=== PATIENT | male | born 1975 | race Caucasian/White ===

== ENCOUNTER 2016-10-19 16:43 | Emergency (ER) | payer OTHER ==
[~2016-10-19] VITALS: Ht 177.8 cm; Wt 86.2 kg
[2016-10-19 16:45] VITALS: BP_SYST 159
--- NOTE | 2016-10-19 17:00 | NUR ---
Placed in room 5. To gown for exam. Side rails up. Report given to ed SWANSON
--- NOTE | 2016-10-19 17:25 | NUR ---
Pt presents to ER with right flank pain. Reports having pain since yesterday. Went to urgent care. prescribed toradol but has no relief. Pt describes pain as shooting- 01/27.
--- NOTE | 2016-10-19 17:28 | NUR ---
ER at bedside examining patient.
[2016-10-19] MEDS ORDERED: PROMETHAZINE HCL 25 MG/ML AMP IM ONE (17:45)
[2016-10-19] MEDS ORDERED: HYDROmorphone 1 MG INJ. 1 MG/ML AMPUL IM ONE (17:45)
--- NOTE | 2016-10-19 17:55 | NUR ---
Admin dilaudid and phenergan as ordered. Pt scott well
--- NOTE | 2016-10-19 19:27 | NUR ---
Patient given written and verbal discharge instructions and verbalizes understanding. ER MD discussed with patient the results and treatment provided. Patient in stable condition. ID arm band removed. Rx of [place], naproxen given. Patient educated on pain management and to follow up with PMD. Pain Scale 1/10 and tolerable. Opportunity for questions provided and answered.
[2016-10-19 19:34] VITALS: BP_SYST 116
== END 2016-10-19 19:34 | disposition home or self-care (01) ==
LOC: SED 16:43
DX: M54.41 Lumbago with sciatica, right side (principal); R03.0 Elevated blood-pressure reading, without diagnosis of hypertension; Z88.8 Allergy status to other drugs, medicaments and biological substances
CPT/HCPCS: 96372; 99284; J1170; J2550

== ENCOUNTER 2024-01-09 07:09 | Day surgery (SDC) | payer OTHER ==
[~2024-01-09] VITALS: Ht 175.3 cm; Wt 93.0 kg
[2024-01-09] MEDS ORDERED: MEPERIDINE 100 MG INJ. 100 MG/ML VIAL ONE (07:34)
[2024-01-09] MEDS ORDERED: MIDAZOLAM HCL 5 MG/5 ML VIAL ONE (07:34)
[2024-01-09 12:41] VITALS: O2SAT 95
[2024-01-09 17:05] VITALS: BP_SYST 111; PULSE 75; RESP 12
== END 2024-01-09 10:24 | disposition home or self-care (01) ==
LOC: SDS 07:09 → SMU 07:10 → SDS 10:24
PROVIDERS: ATTEND Internal Medicine Gastroenterology
DX: Z12.11 Encounter for screening for malignant neoplasm of colon (principal); K63.5 Polyp of colon; K57.30 Diverticulosis of large intestine without perforation or abscess without bleeding; K64.8 Other hemorrhoids; Z88.6 Allergy status to analgesic agent; Z90.89 Acquired absence of other organs; Z88.0 Allergy status to penicillin
CPT/HCPCS: 45385; 88305; 99152; G0378; J2250; J2175